=== PATIENT | male | born 1950 | race Asian ===

== ENCOUNTER 2018-10-05 13:45 | Outpatient (RCR) | payer OTHER, MEDICARE | END 2018-10-13 09:15 | disposition home or self-care (01) | LOC: WSPT 13:45 | DX: M54.5 Low back pain (principal); G89.29 Other chronic pain ==

== ENCOUNTER 2018-12-25 06:22 | Day surgery (SDC) | payer OTHER, MEDICARE ==
[~2018-12-25] VITALS: Ht 172.7 cm; Wt 95.1 kg
[2018-12-25 06:54] VITALS: BP 149/85; PULSE 61; TEMP 97
[2018-12-25] MEDS ORDERED: TYLENOL 500MG500 MG PO (07:16)
[2018-12-25] MEDS ORDERED: LIPITOR 80MG80 MG PO (07:17)
[2018-12-25] MEDS ORDERED: VITAMIN D 1001000 IU PO (07:19)
[2018-12-25] MEDS ORDERED: DULCOLAX STOOL100 MG PO (07:21)
[2018-12-25] MEDS ORDERED: PROSCAR 5MG5 MG PO (07:22)
[2018-12-25] MEDS ORDERED: FLONASEALLERGY NS (07:23)
[2018-12-25] MEDS ORDERED: PRINIVIL20 MG PO (07:25)
[2018-12-25] MEDS ORDERED: CLARITIN 1010 MG/TAB PO (07:25)
[2018-12-25] MEDS ORDERED: MOBIC15 MG PO (07:26)
[2018-12-25] MEDS ORDERED: ROBAXIN 50500 MG/TAB PO (07:28)
[2018-12-25] MEDS ORDERED: REMERON30 MG PO (07:29)
[2018-12-25] MEDS ORDERED: MINIPRESS2 MG PO (07:30)
[2018-12-25] MEDS ORDERED: DESYREL DIVIDO150 M1 PO (07:31)
[2018-12-25 08:35] VITALS: BP 136/79; PULSE 63; TEMP 97.5
--- NOTE | 2018-12-25 08:35 | NUR ---
Pt returned via cart to bay 5. Ambulated with SBA to recliner in bay. VSS-see flowsheet. Given muffin and coffee per request. Brother, Dewayne, brought to room to visit. Pt denied complaints. Call light in reach.
[2018-12-25 08:50] VITALS: BP 129/82; PULSE 67
[2018-12-25 09:05] VITALS: BP 128/77; PULSE 62
--- NOTE | 2018-12-25 09:30 | NUR ---
Pt tolerated a muffin and coffee. VS remain stable-see flowsheet. IV removed and pressure dressing applied. Pt dressed for dc. Dc instructions completed, pt and brother verbalized understanding. Staff ambulated with pt and brother to cafeteria so they can eat per request.
== END 2018-12-25 09:30 | disposition home or self-care (01) ==
LOC: SDCO 06:22
DX: K29.30 Chronic superficial gastritis without bleeding (principal); R19.7 Diarrhea, unspecified; K92.1 Melena; Z88.0 Allergy status to penicillin; Z79.51 Long term (current) use of inhaled steroids; F17.210 Nicotine dependence, cigarettes, uncomplicated
CPT/HCPCS: J2250; J3010; J7030

== ENCOUNTER 2019-09-19 12:18 | Inpatient (IN) | payer MEDICARE ==
[~2019-09-19] VITALS: Ht 172.7 cm; Wt 95.0 kg
[~2019-09-19 12:18] MED LIST: CLARITIN 1010 MG/TAB PO; DESYREL DIVIDO150 M1 PO; DULCOLAX STOOL100 MG PO; FLONASEALLERGY NS; LIPITOR 40MG TA40 MG PO; MINIPRESS2 MG PO; MOBIC15 MG PO; PRINIVIL20 MG PO; PROSCAR 5MG5 MG PO; REMERON30 MG PO; ROBAXIN 50500 MG/TAB PO; TYLENOL 500MG500 MG PO; VITAMIN D 1001000 IU PO
[2019-09-19 14:05] VITALS: BP 141/80; PULSE 82; TEMP 98
--- NOTE | 2019-09-19 15:00 | NUR ---
Pt arrived to room 315 at this time. He is A/O x4. Heparin currently running in LFA at 10ml/hr. Will continue heparin and draw Hep XA per Dr. Armendariz. Pt currently denies any pain. Reports episode started with N/T to arm and what felt like heart burn. Pt denies any N/V. POC discussed with patient tele to be placed. Will continue to monitor.
[2019-09-19 16:58] VITALS: BP 140/65; PULSE 61; TEMP 98
--- NOTE | 2019-09-19 19:40 | NUR ---
Received report from Ninfa. Seen patient awake, lying in bed. With heparin drip on 10ml/hr. IV at right forearm. Denies pain. Instructed he's on NPO by midnight.
[2019-09-19 20:40] VITALS: BP 141/73; PULSE 65; TEMP 98.1
[2019-09-20] VITALS (12 sets, daily range): BP systolic 106–140; BP diastolic 62–78; PULSE 57–70; TEMP 97.1–98.1
--- NOTE | 2019-09-20 06:39 | NUR ---
Sealed valuables envelope placed into safe at this time.
--- NOTE | 2019-09-20 07:15 | NUR ---
Patient had an uneventful night. No complains of pain. Maintained on NPO. Endorsed patient to [facility].
[2019-09-20 08:03] LABS: BASO # 0.1 (0.0-0.2); BASO % 1.4 % (0.0-2.0); EOS # 0.3 (0.0-0.7); EOS % 4.8 % (0-4.0); GRAN # 2.3 (1.4-6.5); GRAN % 41.5 % (42.2-75.2); HEMATOCRIT 42.2 % (42.0-52.0); HEMOGLOBIN 14.7 g/dl (13.5-18.0); LYMPH # 2.4 (1.2-3.4); LYMPH % 43.7 % (20.0-51.0); MEAN CELL VOLUME 94 fl (80.0-100.0); MEAN CORPUSCULAR HEMOGLOBIN 33 pg (27.0-31.0); MEAN CORPUSCULAR HGB CONC 35 g/dl (33.0-37.0); MEAN PLATELET VOLUME 9.4 fl (7.4-10.4); MONO # 0.5 (0.1-0.6); MONO % 8.2 % (1.7-9.3); PLATELET COUNT 169 K/mm3 (130-400); RED BLOOD COUNT 4.51 M/mm3 (4.20-5.60); REDCELL DISTRIBUTION WIDTH-CV 12.2 % (11.5-14.5)
[2019-09-20 08:04] LABS: TROPONIN-I 0.031 ng/mL (0.000-0.035)
[2019-09-20 08:05] LABS: CALCIUM 8.8 mg/dL (8.4-10.2); CHOLESTEROL RISK RATIO 3.5; CREATININE, serum 1.04 (0.66-1.25); POTASSIUM 3.9 mmol/L (3.4-5.0)
--- NOTE | 2019-09-20 10:18 | NUR ---
KENNEDY met with the patient to discharge plan. The patient lives in [place] with his brother, Dewayne (ph#[phone]). He reports independence with ADLs and has a cane. The patient receives primary care at [facility] and he also receives his medications through the [facility]. He reports no difficulties obtaining his meds. The patient does not have advanced directives and he was not interested in completing them at this time. He states that he is not and that he has three children: Judith Thomas, Casimiro, and Leonarda. Judith Thomas lives in [place]. Casimiro and Leonarda live in [place]. The patient plans to return home with his brother upon discharge. No additional needs at this time.
--- NOTE | 2019-09-20 12:24 | NUR ---
SEE MERGE DOCUMENTATION FOR MEDICATION ADMINISTRATION TIMES AND INTRA/POST PROCEDURE SEDATION ASSESSMENTS. RIGHT RADIAL APPROACH PLANNED; RIGHT HAND BARBEAU TEST POSITIVE.
--- NOTE | 2019-09-20 13:23 | NUR ---
pt transported by patient bed from laborer tin can to room 315 by aby morales rn and bjorn borjas commodities trader. pt is alert and oriented. TR band in place with 16 in the band. DINO Connelly notified that patient has arrived to the room. pt is on the phone with family at this time. pt has no concerns or questions at this time. dressing is c/d/i, hemostasis noted at TR band.
--- NOTE | 2019-09-20 14:19 | NUR ---
First visit from the director custom. No needs right now.
--- NOTE | 2019-09-20 15:59 | NUR ---
Patient valuables envelope retrieved from safe and given to DINO Connelly.
--- NOTE | 2019-09-20 19:34 | NUR ---
BAND IS RELEASED, AND KEPT IN PLACE IF NEEDED. DR. OJEDA DID ORDER FOR HEPARIN TO BE RESUMED AFTER PROCEDURE. ORDER WAS PLACED AFTER OBTAINING LAB AND REVIEWED BY BY PHARMACY. WAS INFORMED BY DANIELA IN PHARMACY THAT PATIENT WOULD NOT NEED THE BOLUS THE ORDER WAS TO RESUME THE HEPARIN.
--- NOTE | 2019-09-20 19:37 | NUR ---
1810 PATIENT DISCHARGED TO [facility] VIA EMS. REPORT WAS GIVEN TO AUTOMATION ANALYST ALONG WITH PAPERWORK. DID RETURN PERSONAL BELONGINGS TO PATIENT FROM SAFE. OTHER BELONGINGS WERE TAKEN WITH PATIENT. HAVE ATTEMPTED TO CALL REPORT TO [facility] X2, ONCE WAS DISCONNECTED, SECOND THEY TOOK MY NAME AND NUMBER AND WOULD RETURN CALL. BETWEEN TIMES I DID ATTEMPT TO CALL AND RECEIVED INSTANT VOICEMAIL MESSAGE.
== END 2019-09-20 18:10 | disposition short-term general hospital (02) | DRG 282 ==
LOC: MEDICAL 12:18
PROVIDERS: ADMIT Hospitalist
PROC: 4A023N7 Measurement of Cardiac Sampling and Pressure, Left Heart, Percutaneous Approach (ICD-10-PCS; principal; 2019-09-20)
PROC: B2111ZZ Fluoroscopy of Multiple Coronary Arteries using Low Osmolar Contrast (ICD-10-PCS; 2019-09-20)
DX: I21.4 Non-ST elevation (NSTEMI) myocardial infarction (principal); I25.10 Atherosclerotic heart disease of native coronary artery without angina pectoris; I10 Essential (primary) hypertension; E66.9 Obesity, unspecified; K21.9 Gastro-esophageal reflux disease without esophagitis; F43.10 Post-traumatic stress disorder, unspecified; E78.5 Hyperlipidemia, unspecified; N40.0 Benign prostatic hyperplasia without lower urinary tract symptoms; G47.00 Insomnia, unspecified; M19.90 Unspecified osteoarthritis, unspecified site; Z79.891 Long term (current) use of opiate analgesic; Z79.51 Long term (current) use of inhaled steroids; F17.210 Nicotine dependence, cigarettes, uncomplicated; Z88.0 Allergy status to penicillin; Z68.34 Body mass index [BMI] 34.0-34.9, adult
CPT/HCPCS: 99222-AI; 99239; J1644; J2250; J3010; Q9967